=== PATIENT | female | born 1985 | race Caucasian/White ===

== ENCOUNTER → 2018-09-15 | Outpatient (CLI) | payer OTHER | END | disposition home or self-care (01) | LOC: LAB SHORT 08:02 → PLD 08:02 | DX: N87.9 Dysplasia of cervix uteri, unspecified (principal) | CPT/HCPCS: 88305 ==

== ENCOUNTER → 2018-11-01 | Outpatient (CLI) | payer OTHER ==
[2018-11-02 07:16] LABS: Candida species (DNA Probe) Negative (NEGATIVE); G. vaginalis (DNA Probe) Negative (NEGATIVE); T. vaginalis (DNA Probe) Negative (NEGATIVE)
[2018-11-03 02:06] LABS: CHLAMYDIA TRACHOMATIS, NAA Negative (Negative); NEISSERIA GONORRHOEAE, NAA Negative (Negative)
== END | disposition home or self-care (01) ==
LOC: LAB 11:39 → LAB SHORT 11:39
PROVIDERS: Advanced Practice Midwife
DX: Z11.3 Encounter for screening for infections with a predominantly sexual mode of transmission (principal); N76.0 Acute vaginitis
CPT/HCPCS: 87480; 87491; 87510; 87591; 87660

== ENCOUNTER 2018-12-05 10:28 | Emergency (ER) | payer OTHER ==
[~2018-12-05] VITALS: Ht 165.1 cm; Wt 90.7 kg
[2018-12-05 11:21] LABS: BASOPHILS ABSOLUTE AUTO 0.07 K/mm3 (0.00-0.23); BASOPHILS PERCENT AUTO 1 % (0-2); EOSINOPHILS ABSOLUTE AUTO 0.23 K/mm3 (0.00-0.68); EOSINOPHILS PERCENT AUTO 2 % (0-6); Hematocrit 43.7 % (33.0-51.0); Hemoglobin 14.5 g/dL (11.5-16.0); IMMATURE GRAN ABSOLUTE AUTO 0.13 K/mm3 (0.00-0.10); IMMATURE GRAN PERCENT AUTO 1 % (0-1); LYMPHOCYTES ABSOLUTE AUTO 3.81 K/mm3 (0.84-5.20); LYMPHOCYTES PERCENT AUTO 33 % (21-46); MONOCYTES ABSOLUTE AUTO 0.64 K/mm3 (0.16-1.47); MONOCYTES PERCENT AUTO 6 % (4-13); Mean Corpuscular HGB 29.4 pg (26.0-34.0); Mean Corpuscular HGB Conc 33.2 g/dL (31.5-36.5); Mean Corpuscular Volume 89 fL (80-100); Mean Platelet Volume 11.2 fL (9.1-12.4); NEUTROPHILS ABSOLUTE AUTO 6.63 K/mm3 (1.96-9.15); NEUTROPHILS PERCENT AUTO 58 % (41-73); Platelet Count 265 K/mm3 (150-400); RDW Coefficient Variation 14.3 % (11.7-14.2); Red Blood Cell Count 4.93 M/mm3 (3.80-5.20); White Blood Cell Count 11.51 K/mm3 (4.00-11.30)
[2018-12-05 11:36] LABS: Troponin I <0.015 ng/mL (0.000-0.040)
[2018-12-05 11:38] LABS: Alanine Aminotransfer (ALT/SGP 35 U/L (12-78); Albumin, Blood 3.9 g/dL (3.4-5.0); Albumin/Globulin Ratio 1.1 (0.8-1.8); Alk Phos 82 U/L (50-136); Anion Gap 6 mmol/L (6-16); Aspartate Aminotrans (AST/SGOT 23 U/L (12-37); Bilirubin, Total 0.4 mg/dL (0.1-1.0); Blood Urea Nitrogen 11 mg/dL (8-24); Bun/Creatinine Ratio 15.1 (12.0-20.0); CO2, Blood 26 mmol/L (21-32); Calcium, Blood 8.8 mg/dL (8.5-10.1); Chloride, Blood 107 mmol/L (98-108); Creatinine, Blood 0.73 mg/dL (0.40-1.00); Globulin, Blood 3.5 g/dL (2.2-4.0); Glomerular Filtration Rate >60 (60-); Glucose, Blood 91 mg/dL (70-99); Potassium, Blood 3.6 mmol/L (3.5-5.5); Sodium, Blood 139 mmol/L (136-145); Total Protein, Blood 7.4 g/dL (6.4-8.2)
[2018-12-05] MEDS ORDERED: ALBU90OI INH (12:19)
[2018-12-05] MEDS ORDERED: Cetirizine HCl10 MG PO (12:20)
[2018-12-05] MEDS ORDERED: EZET10 PO (12:21)
[2018-12-05] MEDS ORDERED: FERSU300 PO (12:21)
[2018-12-05] MEDS ORDERED: HYDHCL25 PO (12:22)
[2018-12-05] MEDS ORDERED: LOSA50 PO (12:22)
[2018-12-05] MEDS ORDERED: MELO7.5 PO (12:23)
[2018-12-05] MEDS ORDERED: OMEPRAZOLE20 MG PO (12:23)
[2018-12-05] MEDS ORDERED: RIZATRIPTAN5 MG PO (12:24)
[2018-12-05] MEDS ORDERED: VENL150ER PO (12:24)
[2018-12-05] MEDS ORDERED: QVAR REDIHALE10.6 G1 IH (12:24)
== END 2018-12-05 12:45 | disposition home or self-care (01) ==
LOC: ER 10:28
PROVIDERS: Emergency Medicine
DX: R07.9 Chest pain, unspecified (principal); Z88.0 Allergy status to penicillin; Z79.899 Other long term (current) drug therapy; J45.909 Unspecified asthma, uncomplicated; F17.210 Nicotine dependence, cigarettes, uncomplicated
CPT/HCPCS: 71046; 80053; 83690; 83735; 84484; 85025; 93005; 93010; 99285-25

== ENCOUNTER → 2019-02-09 | Outpatient (CLI) | payer OTHER ==
[~2019-02-09] MED LIST: ALBU90OI INH; Cetirizine HCl10 MG PO; EZET10 PO; FERSU300 PO; HYDHCL25 PO; LOSA50 PO; MELO7.5 PO; OMEPRAZOLE20 MG PO; QVAR REDIHALE10.6 G1 IH; RIZATRIPTAN5 MG PO; VENL150ER PO
[2019-02-10 12:02] LABS: Candida species (DNA Probe) Negative (NEGATIVE); G. vaginalis (DNA Probe) Negative (NEGATIVE); T. vaginalis (DNA Probe) Negative (NEGATIVE)
== END | disposition home or self-care (01) ==
LOC: LAB SHORT 10:00 → LAB 10:00
PROVIDERS: Obstetrics & Gynecology
DX: Z30.431 Encounter for routine checking of intrauterine contraceptive device (principal)
CPT/HCPCS: 87480; 87510; 87660

== ENCOUNTER → 2022-12-07 | Outpatient (CLI) | payer OTHER ==
[2022-12-09 15:12] LABS: HPV 16 Negative (Negative); HPV 18 Negative (Negative); HPV OTHER HR TYPES Negative (Negative)
== END | disposition home or self-care (01) ==
LOC: LAB SHORT 15:44 → LAB 15:44
PROVIDERS: Obstetrics & Gynecology
DX: Z01.419 Encounter for gynecological examination (general) (routine) without abnormal findings (principal)
CPT/HCPCS: 87624; G0145

== ENCOUNTER → 2023-03-22 | Outpatient (CLI) | payer OTHER ==
[2023-03-26 13:43] LABS: 3-OH-COTININE, URN, QUANT <50 ng/mL; ANABASINE, URN, QUANT <5 ng/mL; COTININE, URN, QUANT <15 ng/mL; NICOTINE, URN, QUANT <15 ng/mL
== END ==
LOC: LAB SHORT 18:48 → LAB EV 18:48
PROVIDERS: Obstetrics & Gynecology
DX: Z01.818 Encounter for other preprocedural examination (principal)
CPT/HCPCS: G0480

== ENCOUNTER 2023-05-27 10:37 | Day surgery (SDC) | payer OTHER ==
[2023-05-27] VITALS (14 sets, daily range): BP systolic 134–150; BP diastolic 66–89
[~2023-05-27] VITALS: Ht 165.1 cm; Wt 86.3 kg
[~2023-05-27 10:37] MED LIST changes: +Gentamicin Sulfate 100 MG in NS 100 ML IV SCH; +Lactated Ringer's 1,000 ML IV SCH; +MetroNIDAZOLE 500MG/NS 100 ml 100 ML IV SCH
[2023-05-27] MEDS ORDERED: METOPROLOL SUCC25 MG PO (10:53)
[2023-05-27] MEDS ORDERED: TOPI50 PO (10:54)
[2023-05-27] MEDS ORDERED: ASCO500 PO (10:54)
[2023-05-27] MEDS ORDERED: Robaxin750 MG PO (10:55)
[2023-05-27] MEDS ORDERED: AMIT25 PO (10:55)
[2023-05-27] MEDS ORDERED: VITAMIN D350 MC3 PO (10:56)
[2023-05-27] MEDS ORDERED: FAMO20 PO (10:56)
[2023-05-27] MEDS ORDERED: GABA300 PO (10:56)
[2023-05-27] MEDS ORDERED: BUTALB-ACETAMI1 EAC7 PO (10:57)
--- NOTE | 2023-05-27 11:39 | NUR ---
Ambulatory in Day Surgery Pre-Op teaching done. Pt verbalizes understanding. History, Chart, Medications and Allergies reviewed before start of procedure.
[2023-05-27] MEDS ORDERED: Bupivacaine 0.5% HCl 5 MG/ML 30MLVIAL ONE (12:00)
[2023-05-27] MEDS ORDERED: FentaNYL Citrate 50 MCG/ML 5 ML Injection ONE (12:24)
[2023-05-27] MEDS ORDERED: propofoL 20 ML IV ONE (12:24)
[2023-05-27] MEDS ORDERED: Rocuronium Bromide 10 MG/ML 5ML Injection IV ONE (12:24)
[2023-05-27] MEDS ORDERED: Ipratropium/Albuterol SulF 2.5-0.5MG/3 ML Amp INH SCH (12:25)
[2023-05-27] MEDS ORDERED: Dexamethasone Sod Phos 10 MG/ML 1ML VIAL ONE (12:47)
[2023-05-27] MEDS ORDERED: ePHEDrine Sulfate 50 MG/ML 1ML Injection ONE (13:12)
[2023-05-27] MEDS ORDERED: Sugammadex Sodium 200 MG/2ML SDV (100 MG/ML) ONE (13:38)
[2023-05-27] MEDS ORDERED: Ondansetron HCl 2 MG / ML 2ML Vial ONE (13:38)
[2023-05-27] MEDS ORDERED: Metoclopramide HCl 10 MG Tab PO PRN (14:10)
[2023-05-27] MEDS ORDERED: Metoclopramide HCl 5MG / ML 2ML Vial IV PRN (14:10)
[2023-05-27] MEDS ORDERED: HYDROmorphone HCl/Pf 1MG SYR IV PRN (14:10)
[2023-05-27] MEDS ORDERED: Lactated Ringer's 1,000 ML IV SCH (14:10)
[2023-05-27] MEDS ORDERED: Ondansetron 4 MG TAB PO PRN (14:15)
[2023-05-27] MEDS ORDERED: DiphenhydrAMINE HCL 25 MG Cap PO PRN (14:15)
[2023-05-27] MEDS ORDERED: Simethicone 80 MG Chew PO PRN (14:15)
[2023-05-27] MEDS ORDERED: Ondansetron HCl 2 MG / ML 2ML Vial IV PRN (14:15)
[2023-05-27] MEDS ORDERED: OxyCODONE HCL 5 MG TAB PO PRN (14:15)
[2023-05-27] MEDS ORDERED: Naloxone HCl 0.4MG / ML 1ML Vial IV PRN (14:15)
[2023-05-27] MEDS ORDERED: Ketorolac Tromethamine 30mg Vial IV PRN (14:25)
[2023-05-27] MEDS ORDERED: FentaNYL Citrate 50 MCG/ML 2 ML Injection ONE (14:26)
[2023-05-27] MEDS ORDERED: Ketorolac Tromethamine 30mg Vial ONE (14:32)
[2023-05-27] MEDS ORDERED: Albuterol HFA200 ACT/6.7 GM INH INH PRN (15:20)
[2023-05-27] MEDS ORDERED: SUMAtriptan succinate 50 MG Tab PO PRN (15:20)
[2023-05-27] MEDS ORDERED: Mometasone Furoate Inhaler 220 mcg 14 ACT INH SCH (15:20)
--- NOTE | 2023-05-27 15:27 | NUR ---
DISCHARGE PT HAS VOIDED TWICE SINCE ARRIVING TO THE SURGICAL FLOOR. PVR WNL. EATING AND DRINKING W/O N/V. AMBULATING WITHOUT DIFFICULTY. PAIN IS MANAGED WELL WITH PRESCRIBED RX. NO VAGINAL BLEEDING NOTED. ESCORTED OUT VIA WC.
--- NOTE | 2023-05-27 15:53 | NUR ---
DISCHARGE NOTE: LATE ENTRY PT PLEASANT AND COOPERATIVE. SLEEPS WHEN UNBOTHERED. VSS ON RA. INC.X4 OVER ABDOMEN DRY AND INTACT WITH EXOFEN. PERIPAD DRY, NO BLEEDING NOTED. BUSH REMOVED IN OR.PT DENIED NAUSEA. BUT HAD C/O PAIN. PT MEDICATED IN PACU WITH A TOTAL OF 50MCG IV FENTANYL AND 30MG IV TORDOL WITH GOOD RESULTS. BELONGINGS RETURNED AND PT WAS TRANSFERED TO SURGICAL FLOOR IN STABLE CONDITON.
[2023-05-27] MEDS ORDERED: Acetaminophen 500 MG Tab PO SCH (16:00)
--- NOTE | 2023-05-27 16:47 | NUR ---
DISCHARGE NOTE PATIENT IS UP WALKING TO THE BATHROOM WITH MINIMAL ASSISTANCE. POST OP VOID AND EATING/DRINKING WELL. PAIN IS MANAGED PER EMAR. INCISION SITES FREE OF DRAINAGE AND INTACT AT THE TIME OF DISCHARGE. ESCORTED OUT IN WHEELCHAIR.
[2023-05-27] MEDS ORDERED: ACET500 PO (18:31)
[2023-05-27] MEDS ORDERED: OXYC5 PO (18:32)
[2023-05-27] MEDS ORDERED: Gabapentin 300 MG Cap PO SCH (21:00)
[2023-05-27] MEDS ORDERED: Topiramate 25 MG Tab PO SCH (21:00)
[2023-05-27] MEDS ORDERED: Methocarbamol 500 MG Tab PO SCH (21:00)
[2023-05-27] MEDS ORDERED: Amitriptyline HCl 25 MG Tab PO SCH (21:00)
[2023-05-27] MEDS ORDERED: Omeprazole 20 MG CapCR PO SCH (21:00)
[2023-05-27] MEDS ORDERED: Famotidine 20 MG Tab PO SCH (21:00)
[2023-05-28] MEDS ORDERED: Venlafaxine HCl 75 MG CapCR PO SCH (09:00)
[2023-05-28] MEDS ORDERED: Ezetimibe 10 MG Tab PO SCH (09:00)
[2023-05-28] MEDS ORDERED: Metoprolol Succinate 25 MG TABCR PO SCH (09:00)
[2023-05-28] MEDS ORDERED: Loratadine 10 MG Tab PO SCH (09:00)
[2023-05-28] MEDS ORDERED: Losartan Potassium 50 MG Tab PO SCH (09:00)
== END 2023-05-27 19:05 | disposition home or self-care (01) ==
LOC: ORSCMMR 10:37 → ORD 12:30 → SURS 15:10 → ORSCMMR 19:05
PROVIDERS: Obstetrics & Gynecology
PROC: 0UT9FZZ Resection of Uterus, Via Natural or Artificial Opening With Percutaneous Endoscopic Assistance (ICD-10-PCS; principal; 2023-05-27 12:30)
PROC: 0UT7FZZ Resection of Bilateral Fallopian Tubes, Via Natural or Artificial Opening With Percutaneous Endoscopic Assistance (ICD-10-PCS; principal; 2023-05-27 12:30)
DX: N92.4 Excessive bleeding in the premenopausal period (principal); D50.8 Other iron deficiency anemias; N80.03 Adenomyosis of the uterus; N73.6 Female pelvic peritoneal adhesions (postinfective); N83.8 Other noninflammatory disorders of ovary, fallopian tube and broad ligament; I10 Essential (primary) hypertension; J45.909 Unspecified asthma, uncomplicated; Z79.899 Other long term (current) drug therapy
CPT/HCPCS: 86850; 86900; 86901; 88307; A9270; J1100; J1170; J1580; J1885; J2405; J2704; J3010; J7120

== ENCOUNTER 2023-11-21 13:37 | Emergency (ER) | payer OTHER ==
[~2023-11-21] VITALS: Ht 167.6 cm; Wt 90.7 kg
[~2023-11-21 13:37] MED LIST changes: +ACET500 PO; +AMIT25 PO; +ASCO500 PO; +BUTALB-ACETAMI1 EAC7 PO; +FAMO20 PO; +GABA300 PO; -Gentamicin Sulfate 100 MG in NS 100 ML IV SCH; -Lactated Ringer's 1,000 ML IV SCH; +METOPROLOL SUCC25 MG PO; -MetroNIDAZOLE 500MG/NS 100 ml 100 ML IV SCH; +OXYC5 PO; +Robaxin750 MG PO; +TOPI50 PO; +VITAMIN D350 MC3 PO
[2023-11-21 14:13] LABS: BASOPHILS ABSOLUTE AUTO 0.07 K/mm3 (0.00-0.23); BASOPHILS PERCENT AUTO 1 % (0-2); EOSINOPHILS ABSOLUTE AUTO 0.18 K/mm3 (0.00-0.68); EOSINOPHILS PERCENT AUTO 2 % (0-6); Hematocrit 41.2 % (33.0-51.0); IMMATURE GRAN ABSOLUTE AUTO 0.02 K/mm3 (0.00-0.10); IMMATURE GRAN PERCENT AUTO 0 % (0-1); LYMPHOCYTES ABSOLUTE AUTO 2.19 K/mm3 (0.84-5.20); LYMPHOCYTES PERCENT AUTO 24 % (21-46); MONOCYTES ABSOLUTE AUTO 0.66 K/mm3 (0.16-1.47); MONOCYTES PERCENT AUTO 7 % (4-13); Mean Corpuscular HGB 29.4 pg (26.0-34.0); Mean Corpuscular Volume 86 fL (80-100); Mean Platelet Volume 11.5 fL (9.1-12.4); NEUTROPHILS ABSOLUTE AUTO 5.92 K/mm3 (1.96-9.15); NEUTROPHILS PERCENT AUTO 66 % (41-73); Platelet Count 265 K/mm3 (150-400); RDW Coefficient Variation 13.6 % (11.7-14.2); RDW Standard Deviation 42.9 fL (35.1-46.3); Red Blood Cell Count 4.77 M/mm3 (3.80-5.20); White Blood Cell Count 9.04 K/mm3 (4.00-11.30)
[2023-11-21 14:26] LABS: Albumin, Blood 3.8 g/dL (3.4-5.0); Albumin/Globulin Ratio 1.1 (0.8-1.8); Bilirubin, Total 0.6 mg/dL (0.1-1.0); Bun/Creatinine Ratio 10.4 (12.0-20.0); Calcium, Blood 8.9 mg/dL (8.5-10.1); Creatinine, Blood 0.77 mg/dL (0.40-1.00); Globulin, Blood 3.6 g/dL (2.2-4.0); Total Protein, Blood 7.4 g/dL (6.4-8.2)
[2023-11-21] MEDS ORDERED: Ondansetron HCl 2 MG / ML 2ML Vial IV ONE (14:45)
[2023-11-21] MEDS ORDERED: NS 1,000 ML IV SCH (14:45)
[2023-11-21] MEDS ORDERED: Morphine Sulfate 4 MG/1 ML Injection IV ONE (14:45)
[2023-11-21] MEDS ORDERED: DESV50 PO (15:01)
[2023-11-21] MEDS ORDERED: GABA400 PO (15:02)
[2023-11-21] MEDS ORDERED: AMITRIPTYLINE150 M1 PO (15:02)
[2023-11-21] MEDS ORDERED: FISH OIL 1,0001 EA10 PO (15:04)
[2023-11-21] MEDS ORDERED: ATOR80 PO (15:04)
[2023-11-21] MEDS ORDERED: Ketorolac Tromethamine 30mg Vial IV ONE (16:00)
[2023-11-21] MEDS ORDERED: Doxycycline Hyclate 100 MG TAB PO ONE (16:00)
[2023-11-21 16:11] LABS: Source, Urine Voided
[2023-11-21 16:14] LABS: Appearance, Urine Clear (Clear); Bilirubin, Urine Neg (Neg); Blood, Urine 1+ (Neg); Glucose Qualitative, Urine Neg (Neg); Ketones, Urine Neg (Neg); Leukocyte Esterase, Urine Neg (Neg); Nitrite, Urine Neg (Neg); Protein, Urine Neg (Neg); Specific Gravity, Urine 1.005 (1.003-1.022); Urobilinogen, Urine NORM (Normal)
[2023-11-21 16:21] LABS: Color, Urine Pale Yellow (P-Yellow)
[2023-11-21 16:22] LABS: Bacteria Rare /hpf; Red Blood Cells, Urine 0-2 /hpf (0-2); Squamous Epithelial Cells Rare /hpf (Few); White Blood Cells, Urine 0-2 /hpf (0-5)
[2023-11-21] MEDS ORDERED: DOXY100 PO (16:22)
[2023-11-21] MEDS ORDERED: IBUP800 PO (16:22)
[2023-11-21 16:23] VITALS: BP 131/66
[2023-11-22] MEDS ORDERED: DOXY100 PO (09:04)
== END 2023-11-21 16:36 | disposition home or self-care (01) ==
LOC: ER 13:37
PROVIDERS: Emergency Medicine
DX: J18.9 Pneumonia, unspecified organism (principal); R09.1 Pleurisy; J45.909 Unspecified asthma, uncomplicated; F17.210 Nicotine dependence, cigarettes, uncomplicated; Z79.899 Other long term (current) drug therapy; Z88.0 Allergy status to penicillin
CPT/HCPCS: 74177; 80053; 81001; 83690; 85025; 96361; 96374-59; 96375; 99284-25; A9270; J1885; J2270; J2405; J7030; Q9967

== ENCOUNTER 2024-09-30 18:33 | Emergency (ER) | payer OTHER ==
[~2024-09-30] VITALS: Ht 165.1 cm; Wt 90.7 kg
[~2024-09-30 18:33] MED LIST changes: +AMITRIPTYLINE150 M1 PO; +ATOR80 PO; +DESV50 PO; +DOXY100 PO; +FISH OIL 1,0001 EA10 PO; +GABA400 PO; +IBUP800 PO
[2024-09-30 19:26] LABS: BASOPHILS ABSOLUTE AUTO 0.07 K/mm3 (0.00-0.23); BASOPHILS PERCENT AUTO 1 % (0-2); EOSINOPHILS ABSOLUTE AUTO 0.17 K/mm3 (0.00-0.68); EOSINOPHILS PERCENT AUTO 2 % (0-6); Hematocrit 40.5 % (33.0-51.0); Hemoglobin 13.6 g/dL (11.5-16.0); IMMATURE GRAN ABSOLUTE AUTO 0.02 K/mm3 (0.00-0.10); IMMATURE GRAN PERCENT AUTO 0 % (0-1); LYMPHOCYTES ABSOLUTE AUTO 3.39 K/mm3 (0.84-5.20); LYMPHOCYTES PERCENT AUTO 41 % (21-46); MONOCYTES ABSOLUTE AUTO 0.54 K/mm3 (0.16-1.47); MONOCYTES PERCENT AUTO 7 % (4-13); Mean Corpuscular HGB Conc 33.6 g/dL (31.5-36.5); Mean Corpuscular Volume 86 fL (80-100); NEUTROPHILS ABSOLUTE AUTO 4.11 K/mm3 (1.96-9.15); NEUTROPHILS PERCENT AUTO 50 % (41-73); NRBC ABSOLUTE 0.00 K/mm3 (0.00-0.02); NRBC Auto 0.0 /100 WBC (0.0-0.2); Platelet Count 287 K/mm3 (150-400); RDW Coefficient Variation 14.6 % (11.7-14.2); RDW Standard Deviation 45.5 fL (35.1-46.3)
[2024-09-30 19:42] LABS: Alanine Aminotransfer (ALT/SGP 36.0 U/L (12-78); Albumin, Blood 4.1 g/dL (3.4-5.0); Albumin/Globulin Ratio 1.2 (0.8-1.8); Anion Gap 8.0 mmol/L (3-11); Aspartate Aminotrans (AST/SGOT 22.0 U/L (12-37); Bilirubin, Total 0.5 mg/dL (0.1-1.0); Blood Urea Nitrogen 7.0 mg/dL (8-24); CO2, Blood 25.0 mmol/L (21-32); Calcium, Blood 8.9 mg/dL (8.5-10.1); Chloride, Blood 109.0 mmol/L (98-108); Creatinine, Blood 0.89 mg/dL (0.40-1.00); Globulin, Blood 3.5 g/dL (2.2-4.0); Glucose, Blood 99.0 mg/dL (70-99); Potassium, Blood 3.7 mmol/L (3.5-5.5); Sodium, Blood 138.0 mmol/L (136-145); Total Protein, Blood 7.6 g/dL (6.4-8.2)
[2024-09-30 21:30] VITALS: BP 151/74
== END 2024-09-30 23:21 | disposition home or self-care (01) ==
LOC: ER 18:33
PROVIDERS: Student in an Organized Health Care Education/Training Program
DX: S27.818A Other injury of esophagus (thoracic part), initial encounter (principal); Z88.0 Allergy status to penicillin; Z79.2 Long term (current) use of antibiotics; Z79.899 Other long term (current) drug therapy; J45.909 Unspecified asthma, uncomplicated; F17.200 Nicotine dependence, unspecified, uncomplicated; W44.E9XA Other non-magnetic metal objects entering into or through a natural orifice, initial encounter; Z90.710 Acquired absence of both cervix and uterus
CPT/HCPCS: 70491; 80053; 85025; 99284-25; Q9967

== ENCOUNTER → 2024-10-02 | Outpatient (CLI) | payer OTHER ==
[2024-10-02 08:22] LABS: Source, Urine Clean Catch
[2024-10-02 12:49] LABS: Bilirubin, Urine Neg (Neg); Color, Urine Yellow (P-Yellow); Glucose Qualitative, Urine Neg (Neg); Ketones, Urine Neg (Neg); Leukocyte Esterase, Urine 2+ (Neg); Protein, Urine 1+ (Neg); Specific Gravity, Urine 1.020 (1.003-1.022); Urobilinogen, Urine NORM (Normal)
[2024-10-02 13:13] LABS: White Blood Cells, Urine 0-2 /hpf (0-5)
== END | disposition home or self-care (01) ==
LOC: LAB SHORT 08:20 → LAB 08:20
PROVIDERS: Nurse Practitioner Family
DX: R35.0 Frequency of micturition (principal)
CPT/HCPCS: 81001; 87086

== ENCOUNTER → 2024-12-01 | Outpatient (CLI) | payer OTHER ==
[2024-12-01 09:36] LABS: Source, Urine Clean Catch
[2024-12-01 13:13] LABS: Bilirubin, Urine Neg (Neg); Color, Urine Yellow (P-Yellow); Glucose Qualitative, Urine Neg (Neg); Ketones, Urine Neg (Neg); Leukocyte Esterase, Urine 1+ (Neg); Protein, Urine Neg (Neg); Specific Gravity, Urine 1.015 (1.003-1.022); Urobilinogen, Urine NORM (Normal)
[2024-12-01 13:23] LABS: Red Blood Cells, Urine 0-2 /hpf (0-2)
== END | disposition home or self-care (01) ==
LOC: LAB SHORT 09:34 → LAB 09:34
PROVIDERS: Nurse Practitioner Family
DX: R30.0 Dysuria (principal)
CPT/HCPCS: 81001; 87086